=== PATIENT | male | born 1960 | race Caucasian/White ===

== ENCOUNTER 2018-06-16 07:54 | Day surgery (SDC) | payer OTHER ==
[~2018-06-16] VITALS: Ht 190.5 cm; Wt 110.0 kg
[~2018-06-16 07:54] MED LIST: ASPI-496 PO; BUPIVACAINE/PF 0.25% ONE; CLIN45GE TP; EPINEPHRINE 1 MG/ML, 1ML ONE; LACT1CAP35 PO; LIDOCAINE/PF 0.5% ,50ML ONE; MULT-658 PO; THROMBIN 20,000 UNIT VIAL TP ONE; TRAZ50TA66 PO; VANCOMYCIN 1,000 MG ONE; ZINC50CA PO
[2018-06-16] MEDS ORDERED: FENTANYL PF 250 MCG/5ML ONE (08:25)
[2018-06-16] MEDS ORDERED: MIDAZOLAM 1 MG/ML, 2ML ONE (08:25)
[2018-06-16] MEDS ORDERED: LACTATED RINGERS 1,000 ML IV SCH (08:54)
[2018-06-16] MEDS ORDERED: LIDOCAINE-MPF 1%, 2ML INFIL ONE (09:00)
[2018-06-16] MEDS ORDERED: CEFAZOLIN 1,000 MG ONE (10:22)
[2018-06-16] MEDS ORDERED: KETOROLAC 30 MG/1 ML ONE (10:22)
[2018-06-16] MEDS ORDERED: PROPOFOL 10 MG/ML, 20ML ONE (10:22)
[2018-06-16] MEDS ORDERED: ROCURONIUM 10MG/ML,5ML ONE (10:22)
[2018-06-16] MEDS ORDERED: SUCCINYLCHOLINE 20 MG/ML, 10ML ONE (10:22)
[2018-06-16] MEDS ORDERED: ONDANSETRON 2MG/ML, 2ML ONE (10:22)
[2018-06-16] MEDS ORDERED: DEXAMETHASONE 4 MG/ML, 1ML ONE (10:22)
[2018-06-16] MEDS ORDERED: TOBRAMYCIN SULFATE 1.2 GM IMP IMPLANT ONE (12:57)
[2018-06-16] MEDS ORDERED: HYDROmorphone 1 MG/ML, 1ML INJ IV PRN (13:00)
[2018-06-16] MEDS ORDERED: LABETALOL 5MG/ML, 20ML IV PRN (13:00)
[2018-06-16] MEDS ORDERED: OXYcodone 5 MG/5 ML ORAL.SOL UDC PO PRN (13:00)
[2018-06-16] MEDS ORDERED: KETOROLAC 30 MG/1 ML IV PRN (13:00)
[2018-06-16] MEDS ORDERED: ALBUTEROL SULFATE 2.5 MG/3 ML NPPB PRN (13:00)
[2018-06-16] MEDS ORDERED: hydrALAzine 20 MG/ML, 1ML IV PRN (13:00)
[2018-06-16] MEDS ORDERED: FENTANYL PF 100 MCG/2ML IV PRN (13:00)
[2018-06-16] MEDS ORDERED: METOCLOPRAMIDE 5 MG/ML, 2ML IV PRN (13:00)
[2018-06-16] MEDS ORDERED: ONDANSETRON 2MG/ML, 2ML IVPush PRN (13:00)
[2018-06-16] MEDS ORDERED: PROMETHAZINE 25 MG/ML, 1ML IV PRN (13:00)
[2018-06-16] MEDS ORDERED: MEPERIDINE/PF 25MG/0.5ML IVPush PRN (13:00)
[2018-06-16] MEDS ORDERED: FENTANYL PF 100 MCG/2ML ONE (13:46)
[2018-06-16] MEDS ORDERED: OXYcodone 5 MG/5 ML ORAL.SOL UDC ONE (13:46)
== END 2018-06-16 16:30 | disposition home or self-care (01) ==
LOC: OUT 07:54
PROVIDERS: ATTEND Orthopaedic Surgery Orthopaedic Surgery of the Spine
DX: M48.061 Spinal stenosis, lumbar region without neurogenic claudication (principal); M54.16 Radiculopathy, lumbar region
CPT/HCPCS: 63047; 63048; 72100; J0171; J0330; J0690; J1100; J1885; J2001; J2250; J2405; J2704; J3010; J3260; J3370; J3490; J7120